=== PATIENT | female | born 1965 | race Caucasian/White ===

== ENCOUNTER 2020-04-01 18:38 | Emergency (ER) | payer OTHER ==
[~2020-04-01] VITALS: Ht 162.6 cm; Wt 60.3 kg
[2020-04-01 18:52] VITALS: BP 108/93
--- NOTE | 2020-04-01 19:16 | NUR ---
PT AMBULATED TO BED 12
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
[2020-04-01] MEDS ORDERED: KETOROLAC 30 MG/ML VIAL IM ONE (19:50)
[2020-04-01] MEDS ORDERED: ONDANSETRON 4 MG ODT PO ONE (19:50)
[2020-04-01 21:02] LABS: BASOPHILS # (AUTO) 0.1 K/uL (0.00-0.22); BASOPHILS % (AUTO) 0.9 % (0.0-2.0); EOSINOPHILS # (AUTO) 0.3 K/uL (0-0.4); HEMATOCRIT 36.6 % (36-48); LYMPHOCYTES # (AUTO) 2.3 K/uL (2.5-16.5); LYMPHOCYTES % (AUTO) 34.7 % (20.5-51.1); MEAN CORPUSCULAR HEMOGLOBIN 28 pg (27-31); MEAN CORPUSCULAR HGB CONC 33 g/dL (33-37); MEAN CORPUSCULAR VOLUME 83.8 fL (80-94); MONOCYTES # (AUTO) 0.8 K/uL (0.8-1.0); NEUTROPHILS # (AUTO) 3.3 K/uL (1.8-7.7); NEUTROPHILS % (AUTO) 48.4 % (42.2-75.2); PLATELET COUNT (AUTO) 296 K/uL (140-450); RED BLOOD CELL COUNT(AUTO) 4.36 MIL/uL (4.20-5.40); RED CELL DISTRIBUTION WIDTH 16.8 % (11.6-13.7); WHITE BLOOD COUNT (AUTO) 6.7 K/uL (4.8-10.8)
[2020-04-01 21:14] LABS: BARBITURATE, URINE POSITIVE ng/ml (NEG <=200)
[2020-04-01 21:15] LABS: BENZODIAZEPINE, URINE NEGATIVE ng/mL (NEG <=200); CANNABINOID, URINE NEGATIVE ng/mL (NEG <=50); COCAINE, URINE NEGATIVE ng/mL (NEG <=300); OPIATE, URINE POSITIVE ng/mL (NEG <=2000); PHENCYCLIDINE SCREEN,URINE NEGATIVE ng/mL (NEG <=25)
[2020-04-01 21:16] LABS: ALBUMIN 3.6 g/dL (3.4-5.0); ANION GAP 12.7 (8-16); CARBON DIOXIDE 27.5 mmol/L (21-32); CREATININE 0.7 mg/dL (0.6-1.3); POTASSIUM 4.2 mmol/L (3.5-5.1); TOTAL BILIRUBIN 0.3 mg/dL (0.0-1.0)
[2020-04-01 22:06] VITALS: BP 105/58
--- NOTE | 2020-04-01 22:07 | NUR ---
Patient discharged with v/s stable. Written and verbal after care instructions given and explained. Patient alert, oriented and verbalized understanding of instructions. Ambulatory with steady gait. All questions addressed prior to discharge. ID band removed. Patient advised to follow up with PMD. Rx of ZOFRAN, NAPROXEN, AND VISTERAL given. Patient educated on indication of medication including possible reaction and side effects. Opportunity to ask questions provided and answered.
== END 2020-04-01 22:06 | disposition home or self-care (01) ==
LOC: MED 18:38
DX: R07.9 Chest pain, unspecified (principal); F15.10 Other stimulant abuse, uncomplicated; R00.2 Palpitations; R63.0 Anorexia; E11.9 Type 2 diabetes mellitus without complications
CPT/HCPCS: 36415; 80053; 80305; 81002; 84484; 85025; 85379; 93005; 96372; 99284; J1885; Q0162

== ENCOUNTER 2024-01-12 18:43 | Emergency (ER) | payer MEDICARE, OTHER ==
[~2024-01-12] VITALS: Ht 170.2 cm; Wt 68.0 kg
[2024-01-12 18:57] VITALS: BP 118/68; PULSE 99; RESP 20; TEMP 98.3; O2SAT 98
[2024-01-12 19:11] VITALS: O2SAT 98
== END 2024-01-12 21:05 ==
LOC: MED 18:43
DX: R45.1 Restlessness and agitation (principal); E11.9 Type 2 diabetes mellitus without complications; Z02.89 Encounter for other administrative examinations; Z79.4 Long term (current) use of insulin; Z79.899 Other long term (current) drug therapy
CPT/HCPCS: 82948; 99283